=== PATIENT | male | born 1940 ===

== ENCOUNTER → 2019-09-29 10:38 | Outpatient (REF) | payer MEDICARE, SELFPAY | LOC: ANHLAB 10:38 | PROVIDERS: Visit Provider Nurse Practitioner Family | DX: C44.311 Basal cell carcinoma of skin of nose (principal) | CPT/HCPCS: 88305; 88342 ==

== ENCOUNTER → 2019-10-12 07:17 | Outpatient (REF) | payer MEDICARE, SELFPAY | LOC: ANHLAB 07:17 | PROVIDERS: Visit Provider Nurse Practitioner Family | DX: C44.311 Basal cell carcinoma of skin of nose (principal) | CPT/HCPCS: 88305; 88331 ==